=== PATIENT | male | born 1980 | race Caucasian/White ===

== ENCOUNTER → 2021-03-18 | Outpatient (CLI) | payer OTHER | LOC: KOH-I 09:00 | DX: S92.001A Unspecified fracture of right calcaneus, initial encounter for closed fracture (principal) | CPT/HCPCS: 73700 ==

== ENCOUNTER → 2021-03-26 | Outpatient (CLI) | payer OTHER | LOC: WCC 14:17 | DX: E10.621 Type 1 diabetes mellitus with foot ulcer (principal); L97.519 Non-pressure chronic ulcer of other part of right foot with unspecified severity; S90.821A Blister (nonthermal), right foot, initial encounter; F17.210 Nicotine dependence, cigarettes, uncomplicated; W17.89XA Other fall from one level to another, initial encounter | CPT/HCPCS: 97597 ==